=== PATIENT | female | born 1960 | race Caucasian/White ===

== ENCOUNTER 2025-01-28 10:06 | Outpatient (CLI) | payer BC ==
[~2025-01-28 10:06] MED LIST: IODIXANOL 320 MG/ML INFUS..BTL 100ML IV ONE
[2025-01-28 10:52] LABS: MEAN PLATELET VOLUME 8.1 FL (7.4-10.4); RED CELL DISTRIBUTION WIDTH 13.6 % (11.5-14.5)
[2025-01-28 11:00] LABS: APTT 25 SECONDS (22-32); INR 1.1 INR
[2025-01-28 11:10] LABS: CREATININE 0.94 MG/DL (0.40-0.90); PRO BRAIN NATRIURETIC PEPTIDE 95 PG/ML (0-125); TOTAL CARBON DIOXIDE 28.5 MMOL/L (24-32); eGFR 60 ML/MIN
--- NOTE | 2025-01-28 11:10 | RADIOLOGY REPORT ---
CHEST RADIOGRAPH Indication: TAVR Technique: Frontal and lateral view of the chest was obtained Comparison: None FINDINGS: Lines and Tubes: None Lungs: Clear Pleura: No effusion. No pneumothorax. Cardiomediastinal contours: Unremarkable Bones: Unremarkable IMPRESSION: No evidence of acute disease.
--- NOTE | 2025-01-30 12:55 | RADIOLOGY REPORT ---
Procedure: CT CTA TAVR Reason for study/Clinical History: Chest pain, evaluate for dissection. Comparison Study: None Exam Date: 01/28/2025 11:41 AM TECHNIQUE: Multiplanar reformatted images were generated from volumetric data acquired on a multidetector CT [facility]. Cardiac gating was utilized. Arterial phase images were obtained through the chest, abdomen and pelvis following intravenous administration of contrast material. 100 mL visipaque [address] dose reduction techniques were utilized. 3-D reconstructions were performed on an independent work station. Radiation Dose Information: CT Dose: CTDI volume is 74 mGy. Dose-length product is 2538 mGy*cm FINDINGS: Vascular: Aortic measurements: Aortic annulus: 27.5 x 21.8 mm Sinus of [place]: right cusp 30.5 mm, left cusp 33 mm, non-coronary cusp 34.1 mm Right coronary distance: 15.9 Left coronary distance: 13.5 ST junction 25.6 mm Ascending aorta 34.2 mm Aortic arch 23.9 mm Descending aorta 29.7 mm Aortic hiatus 22.7 mm Upper abdominal aorta 22.6 mm Minimal abdominal aorta 14.9 mm Right common iliac 10.1 mm, tortuosity index 1.06 Left common iliac 8.47 mm, tortuosity index 1.07 There is normal caliber of aorta. No aortic dissection. Aortic arch anatomy is conventional. There is conventional coronary artery anatomy. Scattered calcified atherosclerotic plaque. No central pulmonary embolism. There is normal dimension of the main pulmonary artery. Heart is normal. There are no intracardiac filling defects. No pericardial effusion. Mediastinum: Subcentimeter mediastinal lymph nodes.. Lungs: Mild patchy ground-glass opacities in both lungs. Atelectasis and scarring in the lung bases. Pleura: No effusion or pneumothorax. Chest wall: No acute abnormality. Abdomen and Pelvis: Liver: Normal in appearance. Gallbladder: Normal in appearance. Spleen: Normal in appearance. Pancreas: Normal in appearance. Adrenals: Normal in appearance. Kidneys: Normal in appearance. Bowel: Normal in appearance. Peritoneum: No free air or free fluid. Lymph nodes: No lymphadenopathy by CT size criteria. Pelvic structures: No pelvic mass. Bones: Chronic compression deformity of T11. Multilevel degenerative disease. Osteopenia. IMPRESSION: 1. TAVR planning with vascular measurements as described above. 2. Mild patchy ground-glass opacities in both lungs could represent subsegmental atelectasis. Chronic compression deformity of T11. HS:Y
== END 2025-01-28 23:59 | disposition home or self-care (01) ==
LOC: RAD 10:06
PROVIDERS: ATTEND Internal Medicine Cardiovascular Disease
DX: M85.88 Other specified disorders of bone density and structure, other site (principal); I35.0 Nonrheumatic aortic (valve) stenosis; R06.02 Shortness of breath; I65.29 Occlusion and stenosis of unspecified carotid artery; J98.11 Atelectasis; J98.4 Other disorders of lung; R59.0 Localized enlarged lymph nodes
CPT/HCPCS: 36415; 71046; 71275; 74174; 75572; 80053; 83880; 85025; 85610; 85730; Q9967